=== PATIENT | female | born 1955 | race Caucasian/White ===

== ENCOUNTER 2023-08-11 19:08 | Emergency (ER) | payer MEDICARE, BC, SELFPAY ==
[2023-08-11 19:16] VITALS: BP 119/69; BMI 27.5
--- NOTE | 2023-08-11 20:04 | ED.MUSCINJ ---
Addendum entered and electronically signed by COY Zimmer 08/11/23 21:45:
Radiologist foot Impression: Mild periosteal reaction located along the medial cortex of the 3rd metatarsal suspicious for a stress fracture. Moderate soft tissue swelling in the dorsal left forefoot. Mild soft tissue swelling in the lateral left
ankle.
Patient called and notified of the suspicion for a stress fracture. Patient was already in an Orthopedic short boat and will follow up with the Orthopedic.
Original Note:
HPI-Injury
General
Chief Complaint: Extremity Pain (non-traumatic)
Source: patient
Exam Limitations: none
Time Seen by Provider: 08/11/23 19:31
Travel History
Have you had any contact with someone who has COVID-19?: No
Do you have any symptoms of coronavirus? Fever > 100 degrees, chills, cough, shortness of breath, sore throat, loss of taste or smell, muscle aches, or headache?: No
History of Present Illness-Injury
Is this injury a work related problem?: No
Is pt an associate of [facility]?: No
Initial Injury comments:
This is a 67 year old female that comes in with c/o left foot pain. States that for the past couple of weeks she has had an ache in the left foot. States that today she was in the kitchen and she heard a crack. States that the foot is swollen and
she is unable to walk on the foot. States that the third, fourth and fifth toes also hurt. States that she has also had discomfort in the ankle. Denies any falls or injury. Denies any fever, chills, chest pain, SOB, abd pain, nausea, vomiting,
diarrhea, headache, dizziness, urinary burning.
Past History
Past History
ED Past Medical History: HTN, Hypercholesterolemia, NIDDM, Psychiatric (Anxiety, Depression) and Other (N/A)
ED Past Surgical History: Gynecological (Hysterectomy) and Orthopedic (Right leg surgery for Polio)
Social History
Tobacco: Smoker
Alcohol: Occasional
Personal:
Living: with family
Review of Systems
Review of Systems
All Other Systems: ROS reviewed and negative except as documented in HPI and ROS
Constitutional: Reports no symptoms; Denies fever or chills
EENT: Reports no symptoms
Respiratory: Denies no symptoms or cough
Cardiac: Denies no symptoms or chest pain
ABD/GI: Reports no symptoms; Denies abdominal pain, nausea, vomiting or diarrhea
: Reports no symptoms; Denies dysuria, frequency or urgency
Musculoskeletal: Reports other (Left foot pain with swelling)
Skin: Reports no symptoms
Neurological: Denies dizzy or headache
Psychiatric: Reports no symptoms
Musculoskeletal Injury Exam
Musculoskeletal Injury Exam
Right Lateral Dorsal Foot:
Pain with Movement?: Mild
Tender to palpation?: Mild
Soft tissue swelling?: Mild
External deformity and angulation?: None
Joint effusion?: None
Contusion?: Mild
Hematoma-local bleeding into tissue?: None
Strain- Sprain- Tear (Connective tissue injury)?: None
Crepitus with movement?: No
Joint instability?: No
Malalignment/deformity?: No
Range of motion: Limited (Due to pain)
Distal skin color and temperature: normal-warm & good color
Capillary Refill: normal
Normal distal neurovascular exam?: Yes
Phy Exam
General Physical Exam
General Presentation: well appearing and no apparent distress
General age: appears stated age
General Skin: warm and dry
General Habitus: normal
General Mental: alert
General Hydration: appears well hydrated
Eye Exam
Eye Exam: EOMI
Musculoskeletal Exam
Musculoskeletal Exam: other (Swelling on the left dorsal aspect of the lateral foot, Tender to palpation. Patient able to flex ankle without discomfort. Contusion noted )
Skin Exam
Skin Exam: normal color, warm/dry, no rash and no petechia
Psychiatric Exam
Psychiatric Exam: normal mood/affect
Injury Course
Orders/Labs/Results
Orders:
Orders
08/11/23 19:14
Ankle, left 3 view CR [CR Ankle - Left Min 3 Views ] Urgent
Comment:
Reason For Exam: pain
CR Foot - Left Min 3 Views Urgent
Comment:
Reason For Exam: pain
MDM/Problems Addressed
Differential Diagnosis Includes:
Metatarsal fracture,
MDM/Problems Addressed:
This is a 67 year old female that comes in with c/o left foot pain and swelling. States that she has had a couple weeks of discomfort in the left foot. Today she was in the kitchen when she heard a crack and was unable to walk on the foot.
Will get X-rays.
Back to see patient. Explained that there are no fractures noted of the ankle or foot. Will patient is requested a boot as she has her fathers to go to and is unable to get into any of her shoes. Explained to patient that she will need to
see the mechanical integrity specialist for further evaluation. Patient can weight bare as tolerated. Tylenol or Ibuprofen for pain. Rest, ice and elevated. Return with any concerns.
Chronic conditions affecting care:
NA
Acute Exacerbation and/or Progression of Chronic Illness:
NA
*Radiology
Radiology exam reviewed: preliminary read by ED provider (Left ankle- Negative for fractures or dislocation. Left foot- Negative for fractures)
*Pulse Oximetry
Patient hypoxic: no
*EKG
Interpreted by ED Provider?: NA
Rate: EKG- N/A
*Associate Vice President Interpretation
Rate: Associate Vice President- N/A
*Critical Care Note
Total Time (30-74mins, 75-104mins- exclusive of procedures): Not Applicable
ED Attending Note
-
Portions of this chart may have been created with voice recognition software.� Occasional wrong word or��sound alike� substitutions may have occurred due to the inherent limitations of voice recognition software.
Discharge Plan
Departure
Patient Disposition: Home (Routine Discharge)
Date of Disposition: 08/11/23
Time of Disposition: 20:32
Patient with high blood pressure during this ER visit?: No
Condition: Good
Covid-19: Not Applicable
Discharge Problem:
Localized swelling of left foot, Sprain of foot, left
Instructions: How to Use Crutches, Foot Sprain (DC), RICE Therapy
Referrals:
Shanon Givens MD [Family Provider] -
Bharathi Tello MD [Active] - Follow up in 2-3 days
Activity Restrictions/Additional Instructions:
As discussed, there is no obvious fracture or dislocation of the ankle or foot. You may weight bare as tolerated. Use the crutches to help with walking and the cast boat. Follow up with the mechanical integrity specialist for further evaluation. Rest, ice and
elevate. You may use Tylenol or Ibuprofen for pain. IF YOU HAVE ANY OTHER CONCERNS PLEASE RETURN TO THE EMERGENCY ROOM.
Interventions
Interventions:
*Risk Screen - Suicide Last Done: 08/11/23 19:16
*ED COVID-19 Vaccine History Last Done: 08/11/23 19:16
== END 2023-08-11 21:30 | disposition home or self-care (01) ==
LOC: EMR 19:08
PROVIDERS: EMERGENCY PHYSICIAN Emergency Medicine; FAMILY PHYSICIAN Student in an Organized Health Care Education/Training Program
DX: S93.602A Unspecified sprain of left foot, initial encounter (principal); R22.42 Localized swelling, mass and lump, left lower limb; S90.32XA Contusion of left foot, initial encounter; X58.XXXA Exposure to other specified factors, initial encounter; I10 Essential (primary) hypertension; E78.00 Pure hypercholesterolemia, unspecified; E11.9 Type 2 diabetes mellitus without complications; F41.9 Anxiety disorder, unspecified; F32.A Depression, unspecified; F17.200 Nicotine dependence, unspecified, uncomplicated; Z86.12 Personal history of poliomyelitis; Z88.2 Allergy status to sulfonamides
CPT/HCPCS: 99283; 29515; 73610; 73630

== ENCOUNTER → 2023-12-03 06:35 | Day surgery (SDC) | payer MEDICARE, BC, SELFPAY ==
[2023-12-03 08:49] LABS: Glucose - Point of Care 105 mg/dl (70-99)
== END ==
LOC: GI 06:35
PROVIDERS: ATTENDING PHYSICIAN Specialist
DX: K29.50 Unspecified chronic gastritis without bleeding (principal); K20.90 Esophagitis, unspecified without bleeding; K22.89 Other specified disease of esophagus; K31.89 Other diseases of stomach and duodenum; R13.10 Dysphagia, unspecified
CPT/HCPCS: 43239; 88305; 82962; 88342

== ENCOUNTER → 2023-12-17 10:24 | Outpatient (REF) | payer MEDICARE, BC, SELFPAY | LOC: HWRAD 10:24 | PROVIDERS: ATTENDING PHYSICIAN Family Medicine | DX: M81.0 Age-related osteoporosis without current pathological fracture (principal); Z12.31 Encounter for screening mammogram for malignant neoplasm of breast; F17.210 Nicotine dependence, cigarettes, uncomplicated | CPT/HCPCS: 71271; 77063; 77067; 77080 ==

== ENCOUNTER → 2023-12-27 08:17 | Outpatient (REF) | payer MEDICARE, BC, SELFPAY | LOC: HWRAD 08:17 | PROVIDERS: ATTENDING PHYSICIAN Family Medicine | DX: R94.5 Abnormal results of liver function studies (principal) | CPT/HCPCS: 76700 ==

== ENCOUNTER → 2024-12-20 12:16 | Outpatient (REF) | payer MEDICARE, BC, SELFPAY | LOC: HWWDC 12:16 | PROVIDERS: ATTENDING PHYSICIAN Family Medicine | DX: Z12.31 Encounter for screening mammogram for malignant neoplasm of breast (principal) | CPT/HCPCS: 77063; 77067 ==